=== PATIENT | male | born 1970 | race Caucasian/White ===

== ENCOUNTER 2021-11-22 09:30 | Emergency (ER) | payer SELFPAY ==
[2021-11-22] MEDS ORDERED: Tetracaine 0.5% PF 4 ML BOT ONE (09:57)
== END 2021-11-22 10:29 | disposition home or self-care (01) ==
LOC: MADERS 09:30
DX: T15.12XA Foreign body in conjunctival sac, left eye, initial encounter (principal); Y99.0 Civilian activity done for income or pay; Z79.899 Other long term (current) drug therapy; F17.210 Nicotine dependence, cigarettes, uncomplicated
CPT/HCPCS: 65205

== ENCOUNTER 2022-03-04 09:12 | Emergency (ER) | payer BC, SELFPAY ==
[~2022-03-04 09:12] MED LIST: Iopamidol 370 76% 100 ML VIAL ONE
[2022-03-04 09:45] LABS: #Basophils 0.1 thou/uL (0.0-0.2); #Eosinphils 0.2 thou/uL (0.0-0.7); #Lymphocytes 2.6 thou/uL (1.20-3.40); #Neutrophils 7.4 thou/uL (1.40-6.50); %Basophils 0.9 % (0.0-1.0); %Eosinophils 1.4 % (0.0-10.0); %Lymphocytes 23.1 % (21.0-51.0); %Monocytes 9.1 % (0.0-10.0); %Neutrophils 65.5 % (42.0-75.0); Hemoglobin 15.5 g/dL (14.0-18.0); Mean Corpuscular HGB CONC 33.3 g/dL (32.0-36.0); Mean Corpuscular Hemoglobin 32.3 pg (27.0-31.0); Mean Corpuscular Volume 96.9 fL (78.0-98.0); Mean Platelet Volume 6.9 fL (7.4-10.4); Platelet Count 285 thou/uL (130-400); RBC Distribution Width 10.5 % (11.5-14.5); Red Blood Cell (RBC) Count 4.79 mill/uL (4.70-6.10); White Blood Cell (WBC) Count 11.3 thou/uL (4.8-10.8)
[2022-03-04 09:57] LABS: ALT (SGPT) 17 U/L (8-55); AST (SGOT) 16 U/L (5-34); Albumin 4.3 g/dL (3.5-5.0); Alkaline Phosphatase 92 U/L (40-110); Anion Gap 16 mmol/L (10-20); BUN (Urea Nitrogen) 7 mg/dL (8.4-25.7); Bilirubin, Total 0.4 mg/dL (0.2-1.2); Calc. Creatinine Clearance 0 mL/min (70-130); Calcium 9.5 mg/dL (7.8-10.44); Carbon Dioxide 23 mmol/L (22-29); Chloride 108 mmol/L (98-107); Estimated GFR 107; Globulin 2.6 g/dL (2.4-3.5); Glucose 124 mg/dL (70-105); Potassium 4.5 mmol/L (3.5-5.1); Protein, Total 6.9 g/dL (6.0-8.3); Sodium 142 mmol/L (136-145)
== END 2022-03-04 11:15 | disposition home or self-care (01) ==
LOC: MADERS 09:12
DX: S22.31XA Fracture of one rib, right side, initial encounter for closed fracture (principal); S00.81XA Abrasion of other part of head, initial encounter; S00.31XA Abrasion of nose, initial encounter; R55 Syncope and collapse; F17.210 Nicotine dependence, cigarettes, uncomplicated; X58.XXXA Exposure to other specified factors, initial encounter
CPT/HCPCS: 70450; 70486; 71260; 72125; 74177; 80053; 84484; 85025; 93005; 94760; Q9967

== ENCOUNTER 2022-03-22 14:34 | Outpatient (CLI) | payer BC | END 2022-03-22 14:35 | disposition home or self-care (01) | LOC: MADRAD 14:34 | PROVIDERS: ATTEND Family Medicine | DX: S22.31XA Fracture of one rib, right side, initial encounter for closed fracture (principal) ==

== ENCOUNTER 2022-04-22 15:16 | Outpatient (CLI) | payer BC | END 2022-04-22 15:17 | disposition home or self-care (01) | LOC: MADRAD 15:16 | PROVIDERS: ATTEND Family Medicine | DX: S22.41XA Multiple fractures of ribs, right side, initial encounter for closed fracture (principal); M25.571 Pain in right ankle and joints of right foot; G89.21 Chronic pain due to trauma ==

== ENCOUNTER 2022-05-22 12:44 | Outpatient (CLI) | payer BC | END 2022-05-22 12:45 | disposition home or self-care (01) | LOC: MADRAD 12:44 | PROVIDERS: ATTEND Family Medicine | DX: S22.41XD Multiple fractures of ribs, right side, subsequent encounter for fracture with routine healing (principal) ==